=== PATIENT | female | born 1985 | race Two or more races ===

== ENCOUNTER → 2024-10-06 | Outpatient (CLI) | payer MEDICAID, SELFPAY ==
--- NOTE | 2024-10-06 15:30 | XR_ITS ---
Examination: CT soft tissue neck, with intravenous contrast. 2-D coronal reconstructions. 2-D sagittal reconstructions. Date and time of exam :October 06, 2024 1556 hours INDICATIONS: Enlarged lymph nodes in the neck noticed beginning 5 months ago. CTDI: vol (mGy):10.9 DLP: (mGycm):299 Technique: 1.25 mm axial sections of the neck of the obtained. Coronal and sagittal reconstructions have been obtained. Intravenous contrast administered 50 cc Isovue 370. Low dose protocols were performed. One or more of the following dose reduction techniques were used; automated exposure control, adjustment of the mA and/or KV according to patient size, use of iterative reconstruction technique. Findings: Symmetrical nasopharynx oropharynx Subcentimeter carotid triangle submental lymph nodes Larger right submandibular gland with inflammatory change around the right submandibular gland The larynx appears normal Normal epiglottis Satisfactory alignment cervical vertebral bodies IMPRESSION: Findings most consistent with right submandibular sialoadenitis
== END | disposition home or self-care (01) ==
LOC: CCTX 15:14
PROVIDERS: Referring Provider Physician Assistant; Visit Provider Physician Assistant
DX: R59.1 Generalized enlarged lymph nodes (principal)
CPT/HCPCS: 70491; A4649; Q9967